=== PATIENT | female | born 1980 | race Caucasian/White ===

== ENCOUNTER 2019-07-08 08:16 | Observation (INO) | payer OTHER ==
[~2019-07-08] VITALS: Ht 160 cm; Wt 60.8 kg
--- NOTE | ~2019-07-08 | O ---
[facility] [place] [address] OPERATIVE REPORT Name: MONIQUE RICE Room #: 448-P [facility] M.R.#: [id number] Admission: 07/08/19 Attend Phys: Kang Infante MD Discharge: Date of : 84 Report #: [id number] THIS REPORT FOR: cc: DHAVAL VERAS Physician not on staff Kang Infante MD ~ CC: DHAVAL Infante Physician staff PREOPERATIVE DIAGNOSES: Abdominal pain with cholecystitis and cholelithiasis. POSTOPERATIVE DIAGNOSES: Abdominal pain with cholecystitis and cholelithiasis plus omental adhesion to the abdominal wall. PROCEDURES PERFORMED: 1. Laparoscopic cholecystectomy with cholangiogram. 2. Lysis of omental adhesion. SURGEON: Kang Infante MD ANESTHESIA: General anesthesia. COMPLICATIONS: None. ESTIMATED BLOOD LOSS: 5 mL. PROCEDURE NOTE: With the patient under general anesthesia, abdomen was prepped and draped in sterile fashion. IV antibiotic was administered. Timeout was performed. A 0.25% Marcaine was used to anesthetize the skin infraumbilically. A 2 cm incision was made infraumbilically. Fascia was identified. Fascia was opened under visualization. A clamp was placed on the fascia. 0 Vicryl suture placed on the fascia edges for retraction. With the abdominal wall lifted anteriorly, Veress needle was then placed through the peritoneum. CO2 was administered through the Veress needle. After creating pneumoperitoneum pressure of 15, 11 mm trocar was placed to the rest of the abdominal wall and peritoneum under visualization. No harm to underlying tissue. Two 5 mm trocars were placed in the right upper quadrant, another 5 mm trocar was placed in right epigastrium. The laparoscopic evaluation showed omentum adhesion to the abdominal wall and it is about 1 cm in size and somewhat narrowed and I was concerned about having a bowel loop get twisted in it. The adhesion was divided. The adhesion was divided with a pointed dissector and cautery. The adhesion was freed. There was no bleeding from the omental side. The patient was then placed in the reverse Trendelenburg position, right side tilted up. Gallbladder was then grasped. The patient, in the proximal part of the gallbladder, there was thin adhesion over it. This adhesion was taken down. The stomach was identified and preserved from harm. Once the adhesion was [facility] [address] [place] [address] OPERATIVE REPORT Name: MONIQUE RICE Room #: 448-P [facility]#: [id number] Admission: 07/08/19 Attend Phys: Kang Infante MD Discharge: Date of : 84 Report #: [id number] removed, the proximal part of the gallbladder was grasped with a second grasper. The patient is thin and I can see part of the common duct. The patient's cystic duct was able to be dissected very easily. The peritoneum over the cystic duct was dissected free laterally and then medially. The artery was also identified. The artery is slightly superior to the cystic duct. Cystic duct was normal size. After dissecting part of the cystic duct out and creating a window between it and the artery, the clip was placed in junction of cystic duct to the gallbladder. An opening was made in the cystic duct, cholangiogram catheter was placed. Fluoroscopic cholangiogram was obtained. The catheter was identified in the cystic duct, no harm to the common duct was seen. Common duct filled out well without any filling defect. The cholangiogram catheter was then removed. The proximal cystic duct was clipped x 2 and then divided. The cystic artery was then isolated, clipped x 2 proximally and 1 distally and then divided. This was clipped right at the cystic artery as bifurcated. The gallbladder was free from the liver bed. The gallbladder was somewhat distended. No wall thickening or edema identified. The gallbladder once it was free, was placed in specimen bag and retrieved through the infraumbilical port. The gallbladder was opened up, rest of bile suctioned out. The stone was then visualized and grasped with Allis clamp. Once the stones were removed gradually and then once we got most of the stone out, the gallbladder and the bag came out intact. The 11 mm trocar was then replaced. Liver bed is hemostatic. Clips intact. No bleeding identified. Irrigation was performed and irrigation fluid was then aspirated out. The patient was flattened out. The trocars then removed with evacuation of CO2 as much as possible. The fascia defect at the umbilicus was closed with [id number] 0 Vicryl x 2. Skin was irrigated. Skin was closed with 5-0 PDS. Steri-Strips applied, bandage applied. The patient tolerated the procedure well and was taken to recovery room. By: [id number] Kang Infante MD /norma
[~2019-07-08 08:16] MED LIST: PROTONIX40 M2 PO; YASMIN 28 TABL1 EACH PO
[2019-07-08 09:26] LABS: HEMATOCRIT 37.1 % (37.0-47.0); HEMOGLOBIN 12.4 gm/dL (12.0-15.0)
[2019-07-08 09:39] VITALS: BP 107/61
--- NOTE | 2019-07-08 12:03 | H ---
[facility] [place] [address] HISTORY AND PHYSICAL Name: MONIQUE RICE Room #: 150-1 [facility] M.R.#: [id number] Admission: 07/08/19 Attend Phys: Kang Infante MD Discharge: Date of : 84 Report #: [id number] THIS REPORT FOR: cc: DHAVAL VERAS Physician not on staff Kang Infante MD ~ CC: DHAVAL Infante Physician staff DATE OF SURGERY: 07/08/2019 PREOPERATIVE DIAGNOSIS: Cholecystitis with cholelithiasis. HISTORY OF PRESENT ILLNESS: The patient is a 38-year-old who has had abdominal pain for about 4 years. This year, it has gotten worse. The patient is complaining of pain now almost every day. She has pain that is jabbing in the epigastric area that radiates to the sides of her abdomen and into her back. Initially, this was after eating oily greasy food and it occurs immediately after eating. All sorts of food now bothers her. Complains of bloating and nausea several times. Also complained of dizziness. No vomiting. The patient does have alternating diarrhea and constipation. The pain would last about 20 minutes when it is more intense and 5 minutes when it is not as intense. The pain then eases off and is milder. Most of the time it is at nighttime. She is waken up at nighttime. Initially, she was taking Protonix, which helped, but now it is not helping anymore. No history of jaundice. No dark urine or dakota-colored stool. Mother had gallbladder surgery in her 40s. The patient had an ultrasound performed and the patient is found to have multiple mobile gallstones in the gallbladder. Gallbladder is nondistended. No wall thickening or pericholecystic fluid. She was noted to be tender over the gallbladder. Mild diffuse hepatic echogenicity. The patient is healthy. The patient is recommended to have gallbladder surgery. PAST MEDICAL HISTORY: The patient is healthy. No heart disease, lung disease, no diabetes, no liver or kidney disease. No high blood pressure. No bleeding history. No history of blood clot. PAST SURGICAL HISTORY: in 2014 and breast augmentation in 11/2018. MEDICATIONS: She is on Protonix 40 mg daily. ALLERGIES: No allergies. FAMILY HISTORY: Mother with bad circulation. Gallbladder disease. SOCIAL HISTORY: The patient works in childcare. She does not smoke or drink. [facility] [address] [place] [address] HISTORY AND PHYSICAL Name: MONIQUE RICE Room #: 150-1 [facility]..#: [id number] Admission: 07/08/19 Attend Phys: Kang Infante MD Discharge: Date of : 84 Report #: [id number] REVIEW OF SYSTEMS: No headache, no upper respiratory infection. No chest pain, no palpitation. No sensory or motor deficits. PHYSICAL EXAMINATION: GENERAL: The patient is a well-nourished female in no acute distress. The patient speaks fluent Colombian, translation is through her fiance. She is alert and oriented, in no acute distress. HEENT: Pupils are nonicteric. NECK: Soft and supple, no masses. LUNGS: Clear to auscultation. HEART: Regular rate and rhythm. No murmur or gallop. ABDOMEN: Soft with [id number] tenderness in right upper quadrant. No mass, guarding, rigidity, rebound. No ascites. EXTREMITIES: No cyanosis, clubbing or edema. NEUROLOGIC: Motor and sensory exam normal. IMPRESSION: The patient is a 38-year-old with abdominal pain and the history is classic gallbladder disease. The patient is recommended to have her gallbladder removed as treatment. Laparoscopic cholecystectomy was discussed. The patient understands the procedure, risk of bleeding, infection, common bile duct injury was discussed. <ELECTRONICALLY SIGNED> By: Kang Infante MD 07/08/19 [id number] [id number] Kang Infante MD /nt
[2019-07-08] MEDS ORDERED: NORCO 5-325 TA1 EAC1 PO (14:30)
[2019-07-08] MEDS ORDERED: ZOFRAN ODT4 MG DISSOLVE (14:32)
[2019-07-08 14:56] VITALS: BP 100/79
[2019-07-08 15:50] VITALS: BP 100/79
--- NOTE | 2019-07-08 16:11 | NUR ---
PATIENT ADMITTED FROM OR, LAP JUAN, 4 BANDAIDS TO ABDOMEN AREA, C/D/I. PATIENT WAS GIVEN ZOFRAN 4 MG IV PRIOR TO ARRIVING ON THE UNIT. DR GARDINER PUT DISCHARGE ORDERS IN FOR TODAY, WHEN PATIENT FEELS SHE IS READY. ESVIN/EDERIENDavid WAS BROUGHT TO THE UNIT BY GABRIELLE/VOLUNTEER, AND THE STAFF HAD TO ASK THE VISITOR TO LEAVE THE UNIT, AND WE WILL CALL HIM WHEN PATIENT FEELS SHE IS READY TO DISCHARGE. PATIENT DOES UNDERSTAND A LITTLE CYMRAES. THIS RN CALLED ESVIN/EDERIEND AND HE ASKED PATIENT IF SHE WAS NAUSEATED OR HAVING PAIN, SHE DENIES BOTH, AND IS READY TO GO HOME. LEFT FOREARM IV REMOVED AND CLOTHES LEFT AT THE FRONT LOBBY. PATIENT NEEDS NO HELP TO GET DRESSED. I WILL GO OVER DISCHARGE INSTRUCTIONS WITH THE BOYFRIEND OVER THE PHONE. SCRIPTS ALREADY GIVEN TO THE BOYFRIEND, BY DR GARDINER.
== END 2019-07-08 16:58 | disposition home or self-care (01) ==
LOC: OR 08:16 → TBA 08:18 → OR 09:49 → 4S 14:46
PROVIDERS: ADMIT Surgery
DX: K80.10 Calculus of gallbladder with chronic cholecystitis without obstruction (principal); R42 Dizziness and giddiness
CPT/HCPCS: 50010; 50101; 70005